=== PATIENT | female | born 1990 | race Caucasian/White ===

== ENCOUNTER → 2017-05-29 | Outpatient (CLI) | payer BC | END | disposition home or self-care (01) | LOC: LABWHC1 09:28 | PROVIDERS: ATTEND Obstetrics & Gynecology | DX: N97.9 Female infertility, unspecified (principal) | CPT/HCPCS: 36415; 84144 ==

== ENCOUNTER → 2017-07-21 | Outpatient (CLI) | payer BC | END | disposition home or self-care (01) | LOC: LABWHC1 09:00 | PROVIDERS: ATTEND Obstetrics & Gynecology | DX: N97.0 Female infertility associated with anovulation (principal) | CPT/HCPCS: 36415; 84144 ==

== ENCOUNTER → 2017-08-29 | Outpatient (CLI) | payer BC ==
[2017-08-29 11:26] LABS: HCT 36.2 % (34.0-46.0); HGB 13.5 gm/dL (11.4-16.0); MCH 31.9 pg (25.0-35.0); MCHC 37.3 g/dL (31.0-37.0); MCV 85.7 fL (80.0-100.0); Mean Platelet Volume 7.2; Platelet Count 221 k/uL (150-450); RBC 4.23 m/uL (3.80-5.40); RDW 12.3 % (11.5-15.5); WBC 7.2 k/uL (3.8-10.6)
[2017-08-29 11:38] LABS: Glucose 97 mg/dL (74-99)
[2017-08-29 11:52] LABS: T4, Free (Free Thyroxine) 0.95 ng/dL (0.78-2.19)
[2017-08-30 05:15] LABS: Toxoplasma Antibody (IgG) <3.0 IU/mL (<7.2); Toxoplasma Antibody (IgM) <3.0 AU/mL (<8.0)
== END | disposition home or self-care (01) ==
LOC: LABWHC1 10:47
PROVIDERS: ATTEND Obstetrics & Gynecology
DX: Z34.81 Encounter for supervision of other normal pregnancy, first trimester (principal); Z3A.00 Weeks of gestation of pregnancy not specified
CPT/HCPCS: 36415; 82565; 82947; 84439; 84443; 85027; 86762; 86777; 86778; 86780; 86850; 86900; 86901; 87340

== ENCOUNTER → 2017-12-16 | Outpatient (CLI) | payer BC ==
[2017-12-16 10:08] LABS: HCT 33.6 % (34.0-46.0); HGB 11.4 gm/dL (11.4-16.0); MCH 31.1 pg (25.0-35.0); MCHC 33.9 g/dL (31.0-37.0); MCV 91.8 fL (80.0-100.0); Mean Platelet Volume 7.4; Platelet Count 152 k/uL (150-450); RBC 3.67 m/uL (3.80-5.40); RDW 13.6 % (11.5-15.5); WBC 5.9 k/uL (3.8-10.6)
== END | disposition home or self-care (01) ==
LOC: LABWHC1 09:22
PROVIDERS: ATTEND Obstetrics & Gynecology
DX: Z34.82 Encounter for supervision of other normal pregnancy, second trimester (principal); Z3A.00 Weeks of gestation of pregnancy not specified
CPT/HCPCS: 36415; 82950; 85027; 86850

== ENCOUNTER 2018-02-02 11:13 | Outpatient (CLI) | payer BC ==
[2018-02-02 12:18] VITALS: BP 119/69; PULSE 100; RESP 18; TEMP 98.2
--- NOTE | 2018-02-02 13:00 | P.MSEPDOC ---
Presenting Problems - Arrival Data Date of Arrival on Unit: 02/02/18 Time of Arrival on Unit: 11:13 Mode of Transport: Ambulatory - Complaint OB-Reason for Admission/Chief Complaint: Rule Out PROM Comment: rule out rom at 1000 clear this am. Medical History - Information : 2 Para: 1 Term: 1 : 0 Abortions: Spontaneous or Elective: 0 Number of Living Children: 1 - Gestational Age Gestational Age by GRACY (wks/days): 31 Weeks and 0 Days Review of Systems - Review of Systems Constitutional: No problems Breast: No problems ENT: No problems Cardiovascular: No problems Respiratory: No problems Gastrointestinal: No problems Genitourinary: No problems Musculoskeletal: No problems Neurological: No problems Skin: No problems Vital Signs - Temperature Temperature: 98.2 F - Pulse Right Pulse Oximetery Pulse Rate: 100 Pulse Assessment Method: Pulse Oximetry - Respirations Respiratory Rate: 18 Oxygen Delivery Method: Room Air - Blood Pressure Right Arm Blood Pressure: 119/69 Blood Pressure Mean: 85 Blood Pressure Source: Automatic Cuff Medical Screen Scoring (Pre) - Cervical Exam Dilation: Exam Deferred Effacement: Exam Deferred Membranes: Intact - Uterine Contractions Frequency: N/A Duration: N/A Intensity: N/A - Maternal Vital Signs Maternal Temperature: N/A Maternal Blood Pressure: N/A Signs of Preeclampsia: N/A Maternal Respirations: N/A - Pain Assessment Pain Scale Used: Numeric (1 - 10) Pain Intensity: 0 - Maternal Trauma Maternal Trauma: N/A - Assessment Baseline FHR: 150 Heart Rate - NICHD Category: Category I (Normal) = 0 NST: Reactive Position: N/A Station: N/A - Total Score Total Score (Pre): 0 - Level of Risk Level of Risk: Low (0-5) Physician Notification (Pre) - Physician Notified Physician Notified Date: 02/02/18 Physician Notified Time: 11:50 Physician/Practitioner Notifed:: Dr Olivia Spoke With: telephone New Order Received: Yes - Notification Comment Comment: rule out SROM, amnisure negative, no leaking on spec exam. pt D/Cd Disposition - Disposition OB Disposition: Discharge to home Discharge Date: 02/02/18 Discharge Time: 11:55 I agree with the RN Medical Screening Exam: Yes Risk & Benefit of care provided described in d/c instruction: Yes Diagnosis: FALSE LABOR BEFORE 37 COMPLETED WEEKS OF GEST, THIRD TRI
== END 2018-02-02 11:55 | disposition home or self-care (01) ==
LOC: FBPOP 11:13
PROVIDERS: ATTEND Obstetrics & Gynecology
DX: O47.03 False labor before 37 completed weeks of gestation, third trimester (principal); Z3A.31 31 weeks gestation of pregnancy
CPT/HCPCS: 59025; 84112; 99213

== ENCOUNTER 2018-03-13 04:13 | Outpatient (CLI) | payer BC ==
[2018-03-13 05:47] VITALS: BP 123/73; PULSE 82; RESP 16; TEMP 96.9
--- NOTE | 2018-03-23 08:57 | P.MSEPDOC ---
Presenting Problems - Arrival Data Date of Arrival on Unit: 03/13/18 Time of Arrival on Unit: 04:13 Mode of Transport: Wheelchair - Complaint OB-Reason for Admission/Chief Complaint: Possible Onset of Labor Medical History - Information : 2 Para: 1 Term: 1 : 0 Abortions: Spontaneous or Elective: 0 Number of Living Children: 1 - Gestational Age Gestational Age by GRACY (wks/days): 36 Weeks and 4 Days - History Complications: Prior Review of Systems - Review of Systems Constitutional: No problems Breast: No problems ENT: No problems Cardiovascular: No problems Respiratory: No problems Gastrointestinal: No problems Genitourinary: No problems Musculoskeletal: No problems Neurological: No problems Skin: No problems Vital Signs - Temperature Temperature: 96.9 F Temperature Source: Temporal Artery Scan - Pulse Right Sitting Pulse Rate: 82 Pulse Assessment Method: Automatic Cuff - Respirations Respiratory Rate: 16 Oxygen Delivery Method: Room Air - Blood Pressure Right Arm Blood Pressure: 123/73 Blood Pressure Mean: 89 Blood Pressure Source: Automatic Cuff Medical Screen Scoring (Pre) - Cervical Exam Dilation: 1-3 cm = 1 Membranes: Intact - Uterine Contractions Frequency: > or = 36 weeks =2 Duration: > 40 seconds = 2 Intensity: N/A - Maternal Vital Signs Maternal Temperature: N/A Maternal Blood Pressure: N/A Signs of Preeclampsia: N/A Maternal Respirations: N/A - Pain Assessment Pain Location and Character: Back Pain Scale Used: Numeric (1 - 10) Pain Intensity: 3 Pain Description: *Acute Pain Frequency: Intermittent Pain Duration Units: Hours Pain Behavior: None Exhibited - Maternal Trauma Maternal Trauma: N/A - Assessment Baseline FHR: 135 Heart Rate - NICHD Category: Category I (Normal) = 0 NST: Reactive Position: N/A Station: N/A - Total Score Total Score (Pre): 5 - Level of Risk Level of Risk: Low (0-5) Physician Notification (Pre) - Physician Notified Physician Notified Date: 03/13/18 Physician Notified Time: 05:34 Physician/Practitioner Notifed:: Leon Lewis Order Received: Yes (D/c home) Disposition - Disposition OB Disposition: Discharge to home Discharge Date: 03/13/18 Discharge Time: 05:40 I agree with the RN Medical Screening Exam: Yes Risk & Benefit of care provided described in d/c instruction: Yes Diagnosis: FALSE LABOR BEFORE 37 COMPLETED WEEKS OF GEST, THIRD TRI
== END 2018-03-13 05:40 | disposition home or self-care (01) ==
LOC: FBPOP 04:13
PROVIDERS: ATTEND Obstetrics & Gynecology
DX: O47.03 False labor before 37 completed weeks of gestation, third trimester (principal); Z3A.36 36 weeks gestation of pregnancy
CPT/HCPCS: 59025; 99213

== ENCOUNTER 2018-04-01 05:50 | Inpatient (IN) | payer BC ==
[2018-03-30 15:48] VITALS: BMI 32.4
--- NOTE | 2018-03-31 08:00 | P.HPOB ---
History of Present Illness H&P Date: 03/31/18 Chief Complaint: Repeat section and tubal ligation. This patient is a pleasant 28-year-old 2 para 1 female estimated date of confinement 04/06/2018 estimated gestational age 39-2/7 weeks who presents to labor and delivery for requested repeat section and also requesting tubal ligation. Patient had a previous section as requested repeat. She's also requesting permanent sterilization. has been uncomplicated. Review of Systems Gastrointestinal: Reports heartburn Genitourinary: Reports Menstruation: Reports amenorrhea Past Medical History Past Medical History: Thyroid Disorder Additional Past Medical History / Comment(s): Hypothyroidism and polycystic ovary syndrome. scoliosis History of Any Multi-Drug Resistant Organisms: None Reported Past Surgical History: Section Past Anesthesia/Blood Transfusion Reactions: No Reported Reaction Past Psychological History: No Psychological Hx Reported Smoking Status: Never smoker Past Alcohol Use History: None Reported Past Drug Use History: None Reported - Past Family History Father Family Medical History: Diabetes Mellitus, Hypertension Mother Family Medical History: Hypertension Medications and Allergies Home Medications Medication Instructions Recorded Confirmed Type Levothyroxine Sodium [Synthroid] 1 tab PO DAILY 12/07/14 03/30/18 History Pnv,Calcium 72/Iron/Folic Acid 1 tab PO DAILY 12/07/14 03/30/18 History [ Plus Tablet] Allergies Allergy/AdvReac Type Severity Reaction Status Date / Time No Known Allergies Allergy Verified 03/30/18 15:43 Exam Intake and Output 03/30/18 03/31/18 03/31/18 22:59 06:59 14:59 Other: Weight 75.296 kg - OBG Physical Exam Abdomen: bowel sounds normal, no diffuse tenderness, no bruit present, no guarding noted, no hepatomegaly, no splenomegaly, no mass Vulva: both: normal Vagina: normal moisture, no discharge Cervix: no lesion (Previous exam in the office shows her cervix to be closed), no discharge Uterus: enlarged (Fundal height is consistent with a term ) Results blood work shows she is A negative, rubella immune, RPR nonreactive, hepatitis B is negative, HIV is nonreactive, Glucola was normal, group B strep was negative, ultrasounds have been normal. Patient received RhoGAM on January 06. Assessment and Plan Assessment: This is a pleasant 28-year-old 2 para 1 female 39-2/7 weeks gestation admitted to labor and delivery for elective repeat section also requesting permanent sterilization. Plan is repeat low transverse section and bilateral partial salpingectomy. Patient and I have discussed the surgery and risks including risks of infection, bleeding, possible bowel, bladder, vessels, and/or other organs. Patient her stands a tubal ligation is considered permanent however does have a failure rate of less than 5 per thousand procedures done. All the patient's questions are answered written consent is obtained. (1) Previous delivery affecting Status: Acute Code(s): O34.219 - MATERNAL CARE FOR UNSP TYPE SCAR FROM PREVIOUS DEL SNOMED Code(s): 792293339 (2) Third trimester Status: Acute Code(s): Z34.93 - ENCNTR FOR SUPRVSN OF NORMAL PREG, UNSP, THIRD TRIMESTER SNOMED Code(s): 22139587 (3) Family planning Status: Acute Code(s): Z30.09 - ENCOUNTER FOR OT GENERAL CNSL AND ADVICE ON CONTRACEPTION SNOMED Code(s): 960768930 (4) Rh negative status during Status: Acute Code(s): O09.899 - SUPERVISION OF OTHER HIGH RISK PREGNANCIES, UNSP TRIMESTER; Z67.91 - UNSPECIFIED BLOOD TYPE, RH NEGATIVE SNOMED Code(s): 669907455
[2018-04-01] MEDS ORDERED: CITRIC ACID-SODIUM CITRATE 15 ML CUP PO ONE (05:59)
[2018-04-01] MEDS ORDERED: LACTATED RINGERS 1,000 ML IV SCH (05:59)
[2018-04-01] MEDS ORDERED: LACTATED RINGERS 1,000 ML IV ONE (05:59)
[2018-04-01 06:27] LABS: Basophils % (A) 0 %; Eosinophils # (A) 0.1 k/uL (0-0.7); Eosinophils % (A) 1 %; HCT 34.5 % (34.0-46.0); HGB 12.2 gm/dL (11.4-16.0); Lymphocytes # (A) 1.8 k/uL (1.0-4.8); Lymphocytes % (A) 27 %; MCH 32.8 pg (25.0-35.0); MCHC 35.5 g/dL (31.0-37.0); MCV 92.3 fL (80.0-100.0); Mean Platelet Volume 8.8; Monocytes # (A) 0.4 k/uL (0-1.0); Monocytes % (A) 7 %; Neutrophils # (A) 4.1 k/uL (1.3-7.7); Neutrophils % (A) 63 %; Platelet Count 120 k/uL (150-450); RBC 3.74 m/uL (3.80-5.40); RDW 13.7 % (11.5-15.5); WBC 6.5 k/uL (3.8-10.6)
[2018-04-01] MEDS ORDERED: ceFAZolin IN SWFI 2 GM/20 ML SYRINGE IVP ONE (07:15)
[2018-04-01] MEDS ORDERED: HYDROcodone/APAP 5-325MG 1 EACH TAB PO PRN (07:27)
[2018-04-01] MEDS ORDERED: OXYTOCIN 20 UNITS/1000 ML NS 1,000 ML IV SCH (07:27)
[2018-04-01] MEDS ORDERED: ACETAMINOPHEN TAB 325 MG TAB PO PRN (07:27)
[2018-04-01] MEDS ORDERED: diphenhydrAMINE 25 MG CAP PO PRN (07:27)
[2018-04-01] MEDS ORDERED: METOCLOPRAMIDE 5 MG/ML 2 ML VIAL IVP PRN (07:27)
[2018-04-01] MEDS ORDERED: NALOXONE 0.4 MG/ML 1 ML VIAL IV PRN (07:27)
[2018-04-01] MEDS ORDERED: diphenhydrAMINE 50 MG/ML 1 ML VIAL IVP PRN (07:27)
[2018-04-01] MEDS ORDERED: LANOLIN CREAM 5 GM TUBE TOPICAL PRN (07:27)
[2018-04-01] MEDS ORDERED: ZOLPIDEM 5 MG TAB PO PRN (07:27)
[2018-04-01] MEDS ORDERED: ONDANSETRON 4 MG/2 ML VIAL IVP PRN (07:27)
[2018-04-01] MEDS: LACTATED RINGERS 1,000 ML IV SCH ×2 (07:45→18:51)
[2018-04-01] MEDS ORDERED: OXYTOCIN 10 UNIT/ML 1 ML VIAL ONE (07:50)
[2018-04-01] MEDS ORDERED: DEXAMETHASONE SOD PHOS (MDV) 100 MG/10 ML VIAL ONE (07:50)
[2018-04-01] MEDS ORDERED: ONDANSETRON 4 MG/2 ML VIAL ONE (07:50)
[2018-04-01] MEDS ORDERED: NALBUPHINE 10 MG/ML VIAL (10ML MDV) ONE (07:50)
--- NOTE | 2018-04-01 08:49 | P.OP ---
Date of Procedure: 04/01/18 Preoperative Diagnosis: #1: 39 2/7 weeks . #2: Previous section desires repeat. #3: Multi parity desires permanent sterilization Postoperative Diagnosis: Same Procedure(s) Performed: Repeat low transverse section and bilateral partial salpingectomy Anesthesia: spinal Surgeon: Scar Olivia Grey Washer #1: Lucy Watkins Estimated Blood Loss (ml): 800 Pathology: other (Bilateral fallopian tube segments) Condition: stable Disposition: PACU Indications for Procedure: Please see dictated H&P for intimate details of this patient's admission. In brief summary this is a pleasant 28-year-old 2 para 1 female estimated gestational age 39-2/7 weeks gestation is admitted to labor and delivery for elective repeat section and also requesting permanent sterilization. Patient I discussed the surgery and risks including risks of infection, bleeding , possible injury bowel, bladder, vessels, and/or other organs. Patient understands a tubal ligation is permanent. All the patient's questions are answered written consent is obtained. Operative Findings: This is a viable male Apgars were 9 and 9 delivery time was 0810 hours. Description of Procedure: This patient has a Allen catheter placed to straight drain. She is subsequently taken to the operating room where she sat up and spinal anesthetic is administered without incident. With adequate level of anesthesia she has abdominal prep and drape. Scalpels then taken the previous Pfannenstiel incision is excised. A second scalpel is taken down the fascia the fascia scored with a knife. Fascial incision extended bilaterally using the Leiva scissors. Fascia is then dissected sharply off the rectus muscles. Rectus muscles are and the peritoneum identified and entered sharply. Peritoneal incision extended superior and inferior without difficulty. Bladder blade is then placed. Bladder peritoneum was taken sharply off the lower uterine segment. Scalpels and taken low transverse uterine incision is then made. I enter the uterine cavity bluntly. Infant's head is then guided through the incision with fundal pressure. Mouth and nares are bulb suctioned. We then have delivery anterior and posterior shoulder and rest this infant's body. This is a vigorous viable male Apgars are 9 and 9 delivery time was 0810 hours. After delivery of the the umbilical cord is doubly clamped and cut appears to be trivascular. The placenta is then manually extracted intact. Uterus is then externalized and uterine incision demarcated with Keyes clamps. Is then closed using 0 Vicryl running locked fashion 2 layers. Excellent hemostasis is noted. The bladder peritoneum was then closed using a 3-0 Vicryl running fashion. Turned my attention to the left fallopian tube approximately 4 cm from the cornual insertion a small window made to the mesial salpinx. Using a 2-0 silk I doubly ligate a 2 cm segment of the tube. This is excised and handed off to pathology and the tubal ends are cauterized. Excellent hemostasis is noted. Similar technique is done the right side with similar results. With this done excess fluid is removed from the abdomen and pelvis uterus placed back into the abdomen. Parietal peritoneum was then identified. I inspected tubal ends and the uterine incision once again appears to be hemostatic. The parietal peritoneum was then closed using a 0 Vicryl running fashion. Rectus muscle reapproximate 0 Vicryl interrupted fashion. Fascia is then closed using 0 PDS in a running fashion. Fascial incision is intact and hemostatic. Subcutaneous tissues and closed using a 3-0 Vicryl. Skin is and closed using heather. Excellent hemostasis is noted. All counts correct 3. There are no complications. and mother are taken to the birthing suite in satisfactory condition.
[2018-04-01] MEDS: KETOROLAC 30 MG/ML 1 ML VIAL IVP PRN ×3 (08:58→23:29)
[2018-04-01] MEDS: SENNOSIDES-DOCUSATE SODIUM 1 EACH TAB PO SCH ×2 (11:48→20:37)
[2018-04-01] MEDS: Rhogam IMMUNE GLOBULIN 1,500 UNIT/1 ML IM ONE ×2 (20:38→20:39)
[2018-04-02] MEDS: KETOROLAC 30 MG/ML 1 ML VIAL IVP PRN ×2 (05:55→12:40)
--- NOTE | 2018-04-02 06:36 | P.PNOBGPC ---
Subjective - Subjective Patient reports: Reports appetite normal, Reports voiding normally, Reports pain well controlled, Reports ambulating normally : doing well Objective - Vital Signs Latest vital signs: Vital Signs Temp Pulse Resp BP Pulse Ox 04/02/18 00:00 97.8 F 59 L 18 107/61 98 04/01/18 20:00 98.4 F 66 18 99/70 96 04/01/18 16:00 98.8 F 65 16 119/63 96 04/01/18 12:00 99.0 F 67 16 120/64 97 04/01/18 10:43 68 16 129/71 04/01/18 10:13 72 16 115/74 98 04/01/18 09:43 68 16 107/69 96 04/01/18 09:28 66 16 108/68 99 04/01/18 09:13 67 16 106/63 97 04/01/18 08:58 64 16 103/63 98 04/01/18 08:43 97.2 F L 75 16 100/58 100 Intake and Output 04/01/18 04/01/18 04/02/18 14:59 22:59 06:59 Output Total 3400 605 300 Balance -3400 -605 -300 Output: Urine 2600 605 300 Uretheral (Allen) 300 300 Estimated Blood Loss 800 Other: Voiding Method Indwelling Catheter Indwelling Catheter - Exam Lungs: bilateral: normal Chest: Normal S1, Normal S2 Extremities: Present: normal Abdomen: Present: normal appearance, soft. Absent: distention, tenderness Incision: Present: normal, dry, intact Uterus: Present: normal, firm - Labs Labs: Abnormal Lab Results - Last 24 Hours (Table) 04/01/18 Range/Units 06:20 RBC 3.74 L (3.80-5.40) m/uL Plt Count 120 L (150-450) k/uL Assessment and Plan Assessment: Post operative day #1. Patient is resting without complaints. Vital signs are stable and she is afebrile. Uterus is firm nontender her incision is intact and dry. CBC is pending. I impression this is a normal course. Plan is to allow the patient to shower, encourage ambulation, and check a CBC. (1) Previous delivery affecting Current Visit: No Status: Acute Code(s): O34.219 - MATERNAL CARE FOR UNSP TYPE SCAR FROM PREVIOUS DEL SNOMED Code(s): 165225560 (2) Third trimester Current Visit: No Status: Acute Code(s): Z34.93 - ENCNTR FOR SUPRVSN OF NORMAL PREG, UNSP, THIRD TRIMESTER SNOMED Code(s): 72124112 (3) Family planning Current Visit: No Status: Acute Code(s): Z30.09 - ENCOUNTER FOR OTH GENERAL CNSL AND ADVICE ON CONTRACEPTION SNOMED Code(s): 519061357 (4) Rh negative status during Current Visit: No Status: Acute Code(s): O09.899 - SUPERVISION OF OTHER HIGH RISK PREGNANCIES, UNSP TRIMESTER; Z67.91 - UNSPECIFIED BLOOD TYPE, RH NEGATIVE SNOMED Code(s): 459999035
[2018-04-02 06:43] LABS: Basophils % (A) 0 %; Eosinophils % (A) 0 %; HCT 29.5 % (34.0-46.0); HGB 10.4 gm/dL (11.4-16.0); Lymphocytes # (A) 1.7 k/uL (1.0-4.8); Lymphocytes % (A) 16 %; MCH 32.6 pg (25.0-35.0); MCHC 35.1 g/dL (31.0-37.0); Mean Platelet Volume 9.3; Monocytes # (A) 0.7 k/uL (0-1.0); Monocytes % (A) 7 %; Neutrophils # (A) 7.9 k/uL (1.3-7.7); Neutrophils % (A) 75 %; Platelet Count 110 k/uL (150-450); RBC 3.18 m/uL (3.80-5.40); RDW 13.8 % (11.5-15.5); WBC 10.5 k/uL (3.8-10.6)
--- NOTE | 2018-04-02 07:15 | P.PN ---
Progress Note - Text Progress Note Date: 04/02/18 28 year old female status post section postop day #1 with Duramorph spinal 200 mg. Patient doing well no motor sensory deficits. Ambulate well. Minimal pruritus.
[2018-04-02] MEDS: LACTATED RINGERS 1,000 ML IV SCH ×2 (07:48→07:49)
[2018-04-02] MEDS: SENNOSIDES-DOCUSATE SODIUM 1 EACH TAB PO SCH ×2 (08:09→21:30)
[2018-04-02] MEDS: IBUPROFEN 600 MG TAB PO PRN (21:28)
[2018-04-02] MEDS: SIMETHICONE 80 MG CHEWABLE PO PRN (23:57)
--- NOTE | 2018-04-03 06:51 | P.PNOBGPC ---
Subjective - Subjective Patient reports: Reports appetite normal, Reports voiding normally, Reports pain well controlled, Reports ambulating normally : doing well Objective - Vital Signs Latest vital signs: Vital Signs Temp Pulse Resp BP Pulse Ox 04/03/18 00:00 98.1 F 78 15 112/66 04/02/18 16:00 98.2 F 72 18 105/59 98 04/02/18 12:00 98.1 F 68 18 120/70 97 04/02/18 07:43 98.3 F 62 18 103/58 96 Intake and Output 04/02/18 04/02/18 04/03/18 14:59 22:59 06:59 Output Total 1200 Balance -1200 Output: Urine 1200 Other: # Voids 1 - Exam Lungs: bilateral: normal Chest: Normal S1, Normal S2 Extremities: Present: normal Abdomen: Present: normal appearance, soft. Absent: distention, tenderness Incision: Present: normal, dry, intact Uterus: Present: normal, firm Assessment and Plan Assessment: Post operative day #2. Patient is resting without complaints and wishes to go home. Vital signs are stable and incision is intact and dry. CBC from yesterday was normal. Patient's ambulating and urinating without difficulty. She's tolerating regular diet. My impression is a normal postoperative course. Plan is to continue routine postoperative care discharge home later today (1) Previous delivery affecting Current Visit: No Status: Acute Code(s): O34.219 - MATERNAL CARE FOR UNSP TYPE SCAR FROM PREVIOUS DEL SNOMED Code(s): 428606699 (2) Third trimester Current Visit: No Status: Acute Code(s): Z34.93 - ENCNTR FOR SUPRVSN OF NORMAL PREG, UNSP, THIRD TRIMESTER SNOMED Code(s): 26538857 (3) Family planning Current Visit: No Status: Acute Code(s): Z30.09 - ENCOUNTER FOR OTH GENERAL CNSL AND ADVICE ON CONTRACEPTION SNOMED Code(s): 136093363 (4) Rh negative status during Current Visit: No Status: Acute Code(s): O09.899 - SUPERVISION OF OTHER HIGH RISK PREGNANCIES, UNSP TRIMESTER; Z67.91 - UNSPECIFIED BLOOD TYPE, RH NEGATIVE SNOMED Code(s): 463335812
--- NOTE | 2018-04-03 06:58 | P.DS ---
Providers Date of admission: 04/01/18 05:50 Expected date of discharge: 04/03/18 Attending physician: Scar Olivia Primary care physician: Mallory Weiss - Discharge Diagnosis(es) (1) Previous delivery affecting Current Visit: No Status: Acute (2) Third trimester Current Visit: No Status: Acute (3) Family planning Current Visit: No Status: Acute (4) Rh negative status during Current Visit: No Status: Acute Hospital Course: Please see dictated H&P for intimate details of this patient's admission. Brief summary is a pleasant 28-year-old 2 para 1 female 39-2/7 weeks gestation who is admitted to labor and delivery for elective repeat section and tubal sterilization. Patient is admitted she is repeat low transverse section and bilateral partial salpingectomy for viable male . Please see dictated delivery note. On day #2 patient's felt be stable for discharge home follow up with me in 1 week. Procedures: Repeat low transverse section and bilateral partial salpingectomy Patient Condition at Discharge: Good Plan - Discharge Summary New Discharge Prescriptions: New Ibuprofen [Motrin] 600 mg PO Q6HR PRN #40 tab PRN Reason: Mild Pain Or Fever >= 100.5 No Action Levothyroxine Sodium [Synthroid] 1 tab PO DAILY Pnv,Calcium 72/Iron/Folic Acid [ Plus Tablet] 1 tab PO DAILY Discharge Medication List Levothyroxine Sodium [Synthroid] 1 tab PO DAILY 12/07/14 [History] Pnv,Calcium 72/Iron/Folic Acid [ Plus Tablet] 1 tab PO DAILY 12/07/14 [ History] Ibuprofen [Motrin] 600 mg PO Q6HR PRN #40 tab 04/03/18 [Rx] Follow up Appointment(s)/Referral(s): Scar Olivia MD [STAFF PHYSICIAN] - 04/08/18 2:00 pm (Patient also has a visit on May 20 11:15 AM.) Patient Instructions/Handouts: (DC) Activity/Diet/Wound Care/Special Instructions: No heavy lifting or strenuous activity for 6 weeks. No intercourse or anything per vagina for 6 weeks. Please call if any fever, chills, excessive vaginal bleeding, and/or abdominal pain. Discharge Disposition: HOME SELF-CARE
[2018-04-03 08:28] VITALS: BP 105/62; PULSE 61; RESP 18; TEMP 97.9
[2018-04-03] MEDS: IBUPROFEN 600 MG TAB PO PRN (09:14)
[2018-04-03] MEDS: SENNOSIDES-DOCUSATE SODIUM 1 EACH TAB PO SCH (09:37)
[2018-04-03] MEDS: SIMETHICONE 80 MG CHEWABLE PO PRN (10:00)
== END 2018-04-03 11:45 | disposition home or self-care (01) | DRG 785 ==
LOC: 4FBP 05:50
PROVIDERS: ADMIT Obstetrics & Gynecology; ATTEND Obstetrics & Gynecology
PROC: 0UB70ZZ Excision of Bilateral Fallopian Tubes, Open Approach (ICD-10-PCS; 2018-04-01)
PROC: 10D00Z1 Extraction of Products of Conception, Low, Open Approach (ICD-10-PCS; principal; 2018-04-01 08:00)
DX: O34.211 Maternal care for low transverse scar from previous cesarean delivery (principal); O99.284 Endocrine, nutritional and metabolic diseases complicating childbirth; E03.9 Hypothyroidism, unspecified; O26.893 Other specified pregnancy related conditions, third trimester; E28.2 Polycystic ovarian syndrome; O99.89 Other specified diseases and conditions complicating pregnancy, childbirth and the puerperium; M41.9 Scoliosis, unspecified; O99.62 Diseases of the digestive system complicating childbirth; K21.9 Gastro-esophageal reflux disease without esophagitis; Z37.0 Single live birth; Z3A.39 39 weeks gestation of pregnancy; Z67.91 Unspecified blood type, Rh negative; Z30.2 Encounter for sterilization; Z79.890 Hormone replacement therapy; Z83.3 Family history of diabetes mellitus; Z82.49 Family history of ischemic heart disease and other diseases of the circulatory system
CPT/HCPCS: 85025; 85461; 86850; 86870; 86880; 86900; 86901; 88302

== ENCOUNTER → 2019-02-20 | Outpatient (CLI) | payer BC ==
[2019-02-20 10:43] LABS: Basophils # (A) 0.1 k/uL (0-0.2); Basophils % (A) 1 %; Eosinophils # (A) 0.1 k/uL (0-0.7); Eosinophils % (A) 2 %; HCT 39.9 % (34.0-46.0); HGB 13.2 gm/dL (11.4-16.0); Lymphocytes # (A) 1.6 k/uL (1.0-4.8); Lymphocytes % (A) 28 %; MCH 29.6 pg (25.0-35.0); MCV 89.7 fL (80.0-100.0); Mean Platelet Volume 7.9; Monocytes # (A) 0.4 k/uL (0-1.0); Monocytes % (A) 6 %; Neutrophils # (A) 3.4 k/uL (1.3-7.7); Neutrophils % (A) 61 %; Platelet Count 190 k/uL (150-450); RBC 4.45 m/uL (3.80-5.40); RDW 13.4 % (11.5-15.5); WBC 5.5 k/uL (3.8-10.6)
[2019-02-20 16:42] LABS: African American GFR (CKD) 136.7 (60.0-200.0); Albumin 4.6 g/dL (3.80-4.90); Albumin/Globulin Ratio 2.19 (1.60-3.17); Anion Gap 9.6 mmol/L (4.00-12.00); BUN/Creat Ratio 18.57 Ratio (12.00-20.00); Calcium 9.2 mg/dL (8.7-10.3); Carbon Dioxide 25.4 mmol/L (21.6-31.8); Globulin 2.1 g/dL (1.6-3.3); LDL Cholesterol,Calculated 112.4 mg/dL (0.0-131.0); Non-African American GFR(CKD) 117.9 (60.0-200.0); Potassium 3.9 mmol/L (3.5-5.5); Total Bilirubin 0.5 mg/dL (0.3-1.2); Total Protein 6.7 g/dL (6.2-8.2); VLDL Calculation 13.6 mg/dL (5.00-40.00)
== END | disposition home or self-care (01) ==
LOC: LABWHC1 08:52
PROVIDERS: ATTEND Nurse Practitioner Family
DX: Z00.01 Encounter for general adult medical examination with abnormal findings (principal); Z13.220 Encounter for screening for lipoid disorders; Z13.29 Encounter for screening for other suspected endocrine disorder
CPT/HCPCS: 36415; 80053; 80061; 84443; 85025

== ENCOUNTER → 2020-02-03 | Outpatient (CLI) | payer BC ==
[2020-02-03 12:40] LABS: Basophils % (A) 1 %; Eosinophils # (A) 0.1 k/uL (0-0.7); Eosinophils % (A) 1 %; HCT 40.5 % (34.0-46.0); HGB 13.6 gm/dL (11.4-16.0); Lymphocytes # (A) 1.6 k/uL (1.0-4.8); Lymphocytes % (A) 35 %; MCH 29.9 pg (25.0-35.0); MCHC 33.5 g/dL (31.0-37.0); MCV 89.2 fL (80.0-100.0); Mean Platelet Volume 7.6; Monocytes # (A) 0.2 k/uL (0-1.0); Monocytes % (A) 5 %; Neutrophils # (A) 2.6 k/uL (1.3-7.7); Neutrophils % (A) 57 %; Platelet Count 181 k/uL (150-450); RBC 4.54 m/uL (3.80-5.40); RDW 12.2 % (11.5-15.5); WBC 4.6 k/uL (3.8-10.6)
[2020-02-03 16:46] LABS: African American GFR (CKD) 136.7 (60.0-200.0); Albumin 4.3 g/dL (3.80-4.90); Albumin/Globulin Ratio 2.15 (1.60-3.17); Anion Gap 8.7 mmol/L (4.00-12.00); BUN/Creat Ratio 17.14 Ratio (12.00-20.00); Carbon Dioxide 23.3 mmol/L (21.6-31.8); Chol/HDL Ratio 3.54; LDL Cholesterol,Calculated 140.6 mg/dL (0.0-131.0); Non-African American GFR(CKD) 117.9 (60.0-200.0); Potassium 3.9 mmol/L (3.5-5.5); Total Bilirubin 0.8 mg/dL (0.2-1.2); Total Protein 6.3 g/dL (6.2-8.2); VLDL Calculation 14.4 mg/dL (5.00-40.00)
== END | disposition home or self-care (01) ==
LOC: LABWHC1 09:56
PROVIDERS: ATTEND Nurse Practitioner Family
DX: Z00.00 Encounter for general adult medical examination without abnormal findings (principal); E03.9 Hypothyroidism, unspecified; F90.0 Attention-deficit hyperactivity disorder, predominantly inattentive type
CPT/HCPCS: 36415; 80053; 80061; 84443; 85025

== ENCOUNTER → 2021-02-05 | Outpatient (CLI) | payer BC ==
--- NOTE | 2021-02-05 17:59 | CT ---
EXAMINATION TYPE: CT abdomen pelvis w con DATE OF EXAM: 02/05/2021 HISTORY: pelvic pain x [address] DLP: 639.6mGycm Automated Exposure Control for Dose Reduction was Utilized. CONTRAST: CT scan of the abdomen and pelvis is performed with IV Contrast, patient injected with 100 mL of Isov ue 300. COMPARISON: None. FINDINGS: LUNG BASES: Vague 1.7 x 0.8 cm lesion posterior segment right hepatic lobe with heterogeneity, areas of nodular enhancement shows less well-visualized hypodensity in delayed phase images. Small hemangio ma suspected. LIVER/GB: No significant abnormality is appreciated. PANCREAS: Prominence of the pancreas without surrounding fat stranding presumed normal variant. SPLEEN: No significant abnormality is seen. ADRENALS: No significant abnormality is seen. KIDNEYS: Subcentimeter low dense lesion lower pole right kidney series 7 image 37 too small to furthe r characterize presumed benign. Circumaortic left renal vein which is normal variant. BOWEL: Oral contrast reaches level of mid transverse colon. No suspicious small or large bowel dilata tion. Mild distal colonic fecal prominence. UTERUS/ADNEXA: Anteverted uterus. Occasional scattered inferior pelvic phlebolith. LYMPH NODES: No greater than 1cm abdominal or pelvic lymph nodes are appreciated. OSSEOUS STRUCTURES: No significant abnormality is seen. OTHER: No significant additional abnormality is seen. IMPRESSION: No acute finding is seen to account for patient's clinical symptoms of pelvic pain and di arrhea. No bowel obstruction. Mild distal colonic fecal stasis.
== END | disposition home or self-care (01) ==
LOC: RADCTMAIN 15:29
PROVIDERS: ATTEND Family Medicine
DX: R10.2 Pelvic and perineal pain (principal); R19.7 Diarrhea, unspecified
CPT/HCPCS: 74177; Q9967

== ENCOUNTER → 2022-08-06 | Outpatient (CLI) | payer BC | END | disposition home or self-care (01) | LOC: LABWHC1 12:16 | PROVIDERS: ATTEND Student in an Organized Health Care Education/Training Program | DX: T78.40XD Allergy, unspecified, subsequent encounter (principal) ==